=== PATIENT | female | born 1990 | race Caucasian/White ===

== ENCOUNTER 2017-01-30 23:52 | Emergency (ER) | payer OTHER ==
[~2017-01-30] VITALS: Ht 172.7 cm; Wt 81.1 kg
[~2017-01-30 23:52] MED LIST: AUGMENTIN875 MG PO; BACTRIM,SEPT1 TABLET PO; CIPRO500 MG PO; CLINDAMYCIN HC300 MG PO; ENDOCET 5-3251 EACH PO; FIORICET WI1 CAPSULE PO; IBUPROFEN800 MG PO; KEFLEX250 MG/5 M PO; MACROBID100 MG PO; MEDROL DOSEPAK4 MG PO; MICROGESTIN1 EACH PO; MOTRIN600 MG PO; MOTRIN800 MG PO; NAPROSYN-EC500 MG PO; NOHOMEMEDS; PERCOCET 5/31 TABLET PO; PRENATAL TABLE1 EAC3 PO; PRENATAL VITAMINS; PROVERA,CYCRIN5 MG PO; ROXICET 5-325500 ML PO; TAMIFLU75 MG PO; TYLENOL WITH C1 EACH PO; ULTRAM50 MG PO; ZANTAC150 MG PO; ZITHROMAX Z-PA250 MG PO; ZOFRAN ODT4 MG PO; ZOFRAN ODT8 MG PO; ZOFRAN8 MG PO; Zofran PO; implanon
[2017-01-31 00:31] LABS: EOSINOPHIL (%) 0.3 % (0-5); LYMPHOCYTE COUNT 0.7 K/uL (1.0-2.8); MCH 26.3 PG (29.0-34.0); MCV 82.2 FL (83-99); MEAN PLAT.VOLUME 10.2 uM^3 (9.5-12.4); MONOCYTE (%) 9.2 % (3-12); MONOCYTE COUNT 0.4 K/uL (0-0.8); NEUTROPHIL (%) 71.9 % (45-76); NEUTROPHIL COUNT 2.8 K/uL (1.8-6.4); PLATELET COUNT 180 K/uL (156-360); RBC DIS.WIDTH-CV 13.7 % (11.8-14.6); RBC DIS.WIDTH-SD 40.3 % (39-53); RED BLOOD COUNT 4.99 M/uL (3.80-5.20); WHITE BLOOD COUNT 3.9 K/uL (4.1-10.2)
[2017-01-31 00:43] LABS: CHLORIDE 107 mEq/L (99-109); POTASSIUM 3.9 mEq/L (3.7-5.4); SODIUM 141 mEq/L (136-147)
[2017-01-31 00:45] LABS: GLUCOSE 89 mg/dL (70-99)
[2017-01-31 00:46] LABS: ANION GAP 10 MEQ/L (2-14)
[2017-01-31 00:47] LABS: TOTAL BILIRUBIN 0.3 mg/dL (0.0-1.0)
[2017-01-31 00:48] LABS: ALKALINE PHOSPHATASE 63 IU/L (3-129)
[2017-01-31 00:49] LABS: GFR ESTIMATE (CALCULATED) > 59 mL/min/
[2017-01-31 00:50] LABS: UREA NITROGEN (BUN) 13 mg/dL (9-23)
[2017-01-31 00:57] LABS: INFLUENZA A VIRAL ANTIGEN NEGATIVE; INFLUENZA B VIRAL ANTIGEN POSITIVE
[2017-01-31 01:00] LABS: QUANTITATIVE HCG < 4.0 MIU/ML
[2017-01-31 01:27] VITALS: BP 111/69
== END 2017-01-31 01:29 | disposition home or self-care (01) ==
LOC: EME 23:52
PROVIDERS: Emergency Medicine
DX: J10.1 Influenza due to other identified influenza virus with other respiratory manifestations (principal); J10.2 Influenza due to other identified influenza virus with gastrointestinal manifestations
CPT/HCPCS: 71020; 80053; 84702; 85025; 87502; 99281; 99284; J1200; J1885; J2765; J7030

== ENCOUNTER 2017-04-22 12:06 | Emergency (ER) | payer OTHER ==
[~2017-04-22] VITALS: Ht 172.7 cm; Wt 79.9 kg
[2017-04-22 14:12] VITALS: BP 93/52
[2017-04-22] MEDS ORDERED: REGLAN10 MG PO (15:10)
[2017-04-22] MEDS ORDERED: NAPROSYN500 MG PO (15:10)
[2017-04-22] MEDS ORDERED: IMITREX100 MG PO (15:10)
== END 2017-04-22 15:36 | disposition home or self-care (01) ==
LOC: EME 12:06
DX: G43.909 Migraine, unspecified, not intractable, without status migrainosus (principal); E86.0 Dehydration; J45.909 Unspecified asthma, uncomplicated; Z87.442 Personal history of urinary calculi
CPT/HCPCS: 81003; 99281; 99284; J1885; J2765; J3030; J7030